=== PATIENT | female | born 1990 ===

== ENCOUNTER → 2023-10-11 08:19 | Outpatient (CLI) | payer OTHER | END | disposition home or self-care (01) | LOC: PRENATAL 08:19 | PROVIDERS: ATTEND Obstetrics & Gynecology Maternal & Fetal Medicine | DX: O36.80X0 Pregnancy with inconclusive fetal viability, not applicable or unspecified (principal); Z36.82 Encounter for antenatal screening for nuchal translucency; O09.521 Supervision of elderly multigravida, first trimester; Z3A.12 12 weeks gestation of pregnancy; Z36.9 Encounter for antenatal screening, unspecified; O34.11 Maternal care for benign tumor of corpus uteri, first trimester ==

== ENCOUNTER 2023-12-06 12:29 | Outpatient (CLI) | payer OTHER | END 2023-12-06 12:32 | disposition home or self-care (01) | LOC: PRENATAL 12:29 | PROVIDERS: ATTEND Obstetrics & Gynecology Maternal & Fetal Medicine | DX: O35.3XX0 Maternal care for (suspected) damage to fetus from viral disease in mother, not applicable or unspecified (principal); O44.00 Complete placenta previa NOS or without hemorrhage, unspecified trimester; O09.529 Supervision of elderly multigravida, unspecified trimester; O34.10 Maternal care for benign tumor of corpus uteri, unspecified trimester; Z3A.20 20 weeks gestation of pregnancy ==

== ENCOUNTER 2024-02-03 10:24 | Outpatient (CLI) | payer OTHER | END 2024-02-03 10:26 | disposition home or self-care (01) | LOC: PRENATAL 10:24 | PROVIDERS: ATTEND Obstetrics & Gynecology Maternal & Fetal Medicine | DX: O26.849 Uterine size-date discrepancy, unspecified trimester (principal); O36.8199 Decreased fetal movements, unspecified trimester, other fetus; O44.00 Complete placenta previa NOS or without hemorrhage, unspecified trimester; O09.529 Supervision of elderly multigravida, unspecified trimester; O34.10 Maternal care for benign tumor of corpus uteri, unspecified trimester; Z3A.29 29 weeks gestation of pregnancy ==

== ENCOUNTER → 2024-03-14 12:12 | Outpatient (CLI) | payer OTHER | END | disposition home or self-care (01) | LOC: PRENATAL 12:12 | PROVIDERS: ATTEND Obstetrics & Gynecology Maternal & Fetal Medicine | DX: O26.843 Uterine size-date discrepancy, third trimester (principal); O44.03 Complete placenta previa NOS or without hemorrhage, third trimester; Z3A.34 34 weeks gestation of pregnancy ==